=== PATIENT | female | born 1965 | race Caucasian/White ===

== ENCOUNTER 2025-04-02 15:00 | Outpatient (AMB) | payer OTHER, SELFPAY ==
--- NOTE | 2025-04-02 15:03 | A.OFFPC_ITS ---
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 HLD on lipitor. no chest pain or dyspnea Neuro: Following with neurology, Dr Saji Casey at [place]. On Gilenya. Stable. MSK: osteoporosis. referred to [facility] endocrine. she never had an appt with them-looks like insurance issue. She has DEXA readings in her incoming med records. LDCT-Oct 2023 Pneumo 2018 mammo 01/2024 Colonoscopy 2023 ROS CONSTITUTIONAL: Denies weight loss, fever and chills. HEENT: Denies changes in vision and hearing. RESPIRATORY: Denies SOB and cough. CV: Denies palpitations and CP GI: Denies abdominal pain, nausea, vomiting and diarrhea. : Denies dysuria and urinary frequency. MSK: Denies new myalgia and joint pain. SKIN: Denies rash and pruritus. NEUROLOGICAL: Denies headache PSYCHIATRIC: Denies recent changes in mood. PHYSICAL EXAM: GENERAL: Alert and oriented x 3. NAD EYES: EOMI. Anicteric. HENT: Moist mucous membranes. No scleral icterus. No cervical lymphadenopathy. LUNGS: Clear to auscultation bilaterally. CARDIOVASCULAR: Regular rate and rhythm. No murmur. No JVD. ABDOMEN: Soft, non-tender +bs EXTREMITIES: No edema. Non-tender. SKIN: No rashes or lesions. Warm. NEUROLOGIC: No focal neurological deficits. CN II-XII grossly intact PSYCHIATRIC: Cooperative. Appropriate mood and affect PFSH Surgical History (Updated 04/02/25 @ 15:18 by Maribell Garcia CMA) H/O colonoscopy H/O dilation and curettage Hx of cholecystectomy H/O breast biopsy H/O oral surgery Family History (Updated 04/02/25 @ 15:16 by Maribell Garcia CMA) Mother Heart disease Hyperlipidemia HTN (hypertension) Kidney disease Cardiovascular disease Father Hyperlipidemia HTN (hypertension) Brother HTN (hypertension) Maternal Grandmother Cancer Social History (Updated 04/02/25 @ 15:18 by Maribell Garcia CMA) Housing: Apartment Alcohol intake: current Patient Tobacco Use Status: Former Tobacco user (quit 4 years ago) Cigarette Packs Per Day: 1.5 Years Smoked: 40 e-Cigarette/Vaping Use: Never Used Second Hand Smoke Exposure: No service: No Current occupational status: employed Current occupation: Registered nurse Current occupational exposures/hazards: No Cognitive needs: No Hearing needs: No Vision needs: No Questionnaire PHQ-9 Over the last 2 weeks, how often have you been bothered by any of the following problems? 1. Little interest or pleasure in doing things: not at all 2. Feeling down, depressed, or hopeless: not at all 3. Trouble falling or staying asleep, or sleeping too much: not at all 4. Feeling tired or having little energy: not at all 5. Poor appetite or overeating: not at all 6. Feeling bad about yourself - or that you are a failure or have let yourself or your family down: not at all 7. Trouble concentrating on things, such as reading the newspaper or watching television: not at all 8. Moving or speaking so slowly that other people could have noticed. Or the opposite - being so fidgety or restless that you have been moving around a lot more than usual: not at all 9. Thoughts that you would be better off or of hurting yourself in some way: not at all Total score: 0 Depression Screening Interpretation: Negative Depression Screening Done: Yes 42190 - PHQ-9 Billing: Yes Source: Developed by Drs. Roberto Jennings, Renate Dawkins, Gagan Crespo and colleagues, with an educational bhupinder from [employer]. Thrive Questionnaire Date Thrive assessed: 07/12/25 I am a: Patient What is your living situation today?: I have a steady place to live Within the past 12 months, did the food you bought not last and you didn't have the money to get more?: Never true Within the past 12 months, did you worry whether your food would run out before you got money to buy more?: Never true Do you have trouble paying for medicines?: No Do you have trouble getting transportation to medical appointments?: No Do you have trouble paying your heating and electricity bill?: No Do you have trouble taking care of your child, family member or friend?: No Do you have trouble with day-to-day activities such as bathing, preparing meals, shopping, managing finances, etc.?: No Are you currently unemployed and looking for a job?: No Are you interested in more education?: No Please select the resources that you would like help with: None Currently or been in a relationship where the following occur: No concerns reported THRIVE Score: 0 AUDIT C Alcohol Use Questionnaire (AUDIT-C) 1. How often do you have a drink containing alcohol?: Never 3. How often do you have six or more drinks on one occasion?: Never Total Score: 0 SALENA-7 AMB Questionnaire SALENA-7 Date SALENA - 7 assessed: 04/02/25 Feeling nervous, anxious, or on edge: 2 = More than half the days Not being able to stop or control worryin = More than half the days Worrying too much about different things: 2 = More than half the days Trouble relaxin = More than half the days Being so restless that it is hard to sit still: 0 = Not at all Becoming easily annoyed or irritable: 0 = Not at all Feeling afraid as if something awful might happen: 0 = Not at all Total SALENA-7 score (0-4 normal; 5-9 mild; 10-14 moderate; 15-21 severe): 8 Source: Developed by Drs. Roberto Jennings, Renate Dawkins, Gagan Crespo and colleagues, with an educational bhupinder from [employer]. SALENA-7 Assessment Billing SALENA-7 Assessment Tool: SALENA-7 Assessment 95145 Physical exam (Primary Care) Vital Signs: Last Vital Signs Temp 98.2 F 04/02/25 15:10 Pulse 70 04/02/25 15:10 Resp 14 07/15/25 15:10 BP 138/84 04/02/25 15:10 Pulse Ox 98 04/02/25 15:10 Oxygen Delivery Method Room Air 04/02/25 15:10 BMI result Body Mass Index 23.4 Tobacco/Smoking Status: Tobacco use Status Tobacco use date assessed 04/02/25 04/02/25 15:26 Patient Tobacco Use Status Former Tobacco user (quit 4 04/02/25 15:26 years ago) e-Cigarette/Vaping Use Never Used 04/02/25 15:26 PHQ-9: PHQ-9 Score PHQ-9: Total score 0 04/02/25 16:32 Depression Screening Interpretation: Negative Thrive Assessment: Date of Thrive Assessment Date Thrive assessed 03/30/25 04/02/25 15:26 Currently or been in a relationship where the following occur: No concerns reported Coding Level of Care Code New Pt Prev Care 40-64y(14462) Diagnoses Primary hypertension I10 Hypertension type: primary hypertension Multiple sclerosis G35 Osteoporosis without current pathological fracture, unspecified osteoporosis type M81.0 Osteoporosis type: unspecified Presence of current pathological fracture: without current pathological fracture Additional Codes SALENA-7 Assessment Billing - SALENA-7 Assessment Tool: SALENA-7 Assessment 89143 ([id number]) PHQ-9 - 34338 - PHQ-9 Billing: Yes ([id number]) Assessment & Plan Assessment & Plan (1) Hypertension: Code(s): I10 - Essential (primary) hypertension Category: Medical Qualifiers: Hypertension type: primary hypertension Qualified Code(s): I10 - Essential (primary) hypertension (2) Multiple sclerosis: Code(s): G35 - Multiple sclerosis Category: Medical (3) Osteoporosis: Code(s): M81.0 - Age-related osteoporosis without current pathological fracture Category: Medical Qualifiers: Osteoporosis type: unspecified Presence of current pathological fracture: without current pathological fracture Qualified Code(s): M81.0 - Age- related osteoporosis without current pathological fracture Plan 60 year old to establish care Past medical surgical social reviewed MS-stable osteoporosis-referred to endocrine Due for lipids and upcoming mammo Orders: Orders MM tomosynthesis screening BI 04/02/25 Z12.31 - Encounter for screening mammogram for malignant neoplasm of breast Lipid Panel 04/02/25 I10 - Essential (primary) hypertension, Z13.220 - Encoun ter for screening for lipoid disorders Referrals Endocrinology Referral G35 - Multiple sclerosis, M81.0 - Age-related osteoporosis without current pathological fracture
[2025-04-02 15:10] VITALS: BP 138/84; PULSE 70; RESP 14; TEMP 36.8; O2SAT 98; BMI 23.4
--- OUTSIDE RECORDS SUMMARY | 2025-04-02 16:18 | XMS_ITS ---
Author Organization [facility] [address] Address [address] [place] [address] Care Team Providers Care Herb Grower Name Role Phone Ashkan Trevizo MD Primary Care Provider [phone] Rx Multiple Sclerosis Status:Enrolled (Active) Start date:02/10/2023 Enrollment date:02/10/2023 Current support & services provided:Refill Management, Amb Pharm Svcs - Specialty Rx Mgmt Linked medications:dalfampridine (Active), fingolimod HCl (Active) Linked problems:Multiple sclerosis (HC Code) (Active) Case Team Name Relationship Phone Zoraida CedilloD(Responsible Staff) Pharmacist Continued Care and Services Coordination
--- OUTSIDE RECORDS SUMMARY | 2025-04-02 16:18 | XMS_ITS ---
Author Name [facility] Organization Unknown Results Test Name/Text Value Interpretation Date Range Source BKR CD3+CD4+CD8+ LYMPH 1.03 % Normal 10/06/2023 0.13 - 3.82 [facility] BKR NK-CELL MARKERS - LYMPH GATE Normal 10/06/2023 [facility] CD3+CD4+ Cells NFr Bld 28.9 % Below low normal 10/06/2023 29.33 - 59.86 [facility] BKR CD3+CD4+CD8+ ABSOLUTE LYMPH COUNT 5.0 /ul Normal 10/06/2023 2 - 101 [facility] BKR CD19+ LYMPH 2.85 % Below low normal 10/06/2023 5.13 - 21.2 [facility] BKR CD4/CD8 LYMPH RATIO (EXCL.DUAL POS.) 1.18 Normal 10/06/2023 0.73 - 5.86 [facility] BKR CD19+ ABS LYMPH COUNT 13.0 /ul Below low normal 10/06/2023 101 - 525 [facility] BKR CD3-CD16/56+ LYMPH 38.9 % Above high normal 10/06/2023 3.87 - 27.52 [facility] BKR TOTAL LYMPH EVENTS 3969.0 Normal 10/06/2023 [facility] BKR T-CELL MARKERS - LYMPH GATE Normal 10/06/2023 [facility] BKR CD3+CD4-CD8- ABSOLUTE LYMPH COUNT 6.0 /ul Below low normal 10/06/2023 11 - 123 [facility] BKR CD3+ LYMPH 55.63 % Below low normal 10/06/2023 58.5 - 84.57 [facility] CD3+CD4+ Cells # Bld 135.0 /ul Below low normal 10/06/2023 4 66 - 1608 [facility] BKR CD3+CD8+ ABS LYMPH COUNT (EXCL.DUAL POS.) 114.0 /ul Below low normal 10/06/2023 153 - 980 [facility] BKR CD3+CD4-CD8- LYMPH 1.18 % Normal 10/06/2023 0.75 - 6.04 [facility] BKR CD3+ ABS LYMPH COUNT 259.0 /ul Below low normal 10/06/2023 725 - 2432 [facility] BK CD3-CD16/56+ ABS LYMPH COUNT 181.0 /ul Normal 10/06/2023 90 - 620 [facility] BKR TOTAL LYMPHOCYTE GATE Normal 10/06/2023 [facility] BKR CD45+ ABS LYMPH COUNT 466.0 /uL Below low normal 10/06/2023 1172 - 3116 [facility] BKR CD3+/CD8+LYMPH (EXCL.DUAL POS.) 24.51 % Normal 10/06/2023 9.92 - 38.76 [facility] BKR B-CELL MARKERS - LYMPH GATE Normal 10/06/2023 [facility] IgA SerPl-mCnc 99.0 mg/dL Normal 10/06/2023 70 - 470 [facility] IgM SerPl-mCnc 55.0 mg/dL Normal 10/06/2023 40 - 230 [facility] IgG SerPl-mCnc 765.0 mg/dL Normal 10/06/2023 700 - 1600 [facility] Globulin Plas-mCnc 2.4 g/dL Normal 10/05/2023 2.3 - 3.5 [facility] Prot SerPl-mCnc 6.9 g/dL Normal 10/05/2023 6.6 - 8.7 [facility] AST SerPl w P-5'-P-cCnc 22.0 U/L Normal 10/05/2023 10 - 35 [facility] Chloride SerPl-sCnc 107.0 mmol/L Normal 10/05/2023 98 - 1 07 [facility] Albumin SerPl BCG-mCnc 4.5 g/dL Normal 10/05/2023 3.6 - 4.9 [facility] ALT SerPl w/o P-5'-P-cCnc 31.0 U/L Normal 10/05/2023 10 - 35 [facility] Calcium SerPl-mCnc 9.5 mg/dL Normal 10/05/2023 8.8 - 10.2 [facility] Anion Gap3 SerPl-sCnc 8.0 Normal 10/05/2023 7 - 17 [facility] AST/ALT SerPl-cRto 0.7 Normal 10/05/2023 - [facility] Creat SerPl-mCnc 0.78 mg/dL Normal 10/05/2023 0.4 - 1.3 [facility] ALP SerPl-cCnc 40.0 U/L Normal 10/05/2023 9 - 122 [facility] BUN/Creat SerPl 41.0 Above high normal 10/05/2023 8 - 2 3 [facility] Glucose SerPl-mCnc 97.0 mg/dL Normal 10/05/2023 70 - 100 [facility] Potassium SerPl-sCnc 5.1 mmol/L Normal 10/05/2023 3.3 - 5 .3 [facility] BUN SerPl-mCnc 32.0 mg/dL Above high normal 10/05/2023 6 - 2 0 [facility] HCO3 SerPl-sCnc 28.0 mmol/L Normal 10/05/2023 20 - 30 [facility] GFR/BSA.pred SerPlBld OGU-KLW-SyGYnm >60.0 mL/min/1.73m2 Normal 10/05/2023 - [facility] Sodium SerPl-sCnc 143.0 mmol/L Normal 10/05/2023 136 - 14 4 [facility] Albumin/Glob SerPl 1.9 Normal 10/05/2023 1 - 2.2 [facility] Bilirub SerPl-mCnc 0.2 mg/dL Normal 10/05/2023 - [facility] Eosinophil # Bld Auto 0.13 x 1000/uL Normal 10/05/2023 0 - 1 [facility] MCHC RBC Auto-mCnc 32.3 g/dL Normal 10/05/2023 31 - 36 [facility] WBC # Bld Auto 3.1 x1000/uL Below low normal 10/05/2023 4 - 11 [facility] Monocytes # Bld Auto 0.45 x 1000/uL Normal 10/05/2023 0 - 1 [facility] PMV Bld Auto 9.1 fL Normal 10/05/2023 8 - 12 [facility] T Basophils/leuk NFr Bld Auto 0.0 % Normal 10/05/2023 0 - 1.4 [facility] Lymphocytes # Bld Auto 0.41 x 1000/uL Below low normal 10/05/2023 0.6 - 3.7 [facility] nRBC # Bld Auto 0.0 x 1000/uL Normal 10/05/2023 0 - 1 [facility] Monocytes/leuk NFr Bld Auto 14.4 % Above high normal 10/05/2023 4 - 12 [facility] Hct VFr Bld Auto 38.1 % Normal 10/05/2023 35 - 45 [facility] RBC # Bld Auto 3.8 M/uL Below low normal 10/05/2023 4 - 6 [facility] Neutrophils # Bld Auto 2.13 x 1000/uL Normal 10/05/2023 2 - 7.6 [facility] Neutrophils/leuk NFr Bld Auto 68.0 % Normal 10/05/2023 39 - 72 [facility] Basophils # Bld Auto 0.0 x 1000/uL Normal 10/05/2023 0 - 1 [facility] Lymphocytes/leuk NFr Bld Auto 13.1 % Below low normal 10/05/2023 17 - 50 [facility] Hgb Bld-mCnc 12.3 g/dL Normal 10/05/2023 11.7 - 15.5 [facility] Imm Granulocytes/leuk NFr Bld Auto 0.3 % Normal 10/05/2023 0 - 1 [facility] MCV RBC Auto 100.3 fL Above high normal 10/05/2023 80 - 100 [facility] Platelet # Bld Auto 319.0 x1000/uL Normal 10/05/2023 150 - 420 [facility] Imm Granulocytes # Bld Auto 0.01 x 1000/uL Normal 10/05/2023 0 - 0.3 [facility] Eosinophil/leuk NFr Bld Auto 4.2 % Normal 10/05/2023 0 - 5 [facility] nRBC/100 WBC Bld Auto-Rto 0.0 % Normal 10/05/2023 0 - 1 [facility] RDW RBC Auto-Rto 12.9 % Normal 10/05/2023 11 - 15 [facility] MCH RBC Qn Auto 32.4 pg Normal 10/05/2023 27 - 33 [facility]
== END 2025-04-02 15:52 | disposition home or self-care (01) ==
LOC: HO.HMCFM 15:00
PROVIDERS: PCP Internal Medicine; Visit Provider Internal Medicine
DX: Z00.00 Encounter for general adult medical examination without abnormal findings (principal); I10 Essential (primary) hypertension; G35 Multiple sclerosis; M81.0 Age-related osteoporosis without current pathological fracture

== ENCOUNTER → 2025-04-02 15:00 | Outpatient (BNVA) | payer OTHER, SELFPAY | PROVIDERS: PCP Internal Medicine; Visit Provider Internal Medicine | DX: Z76.89 Persons encountering health services in other specified circumstances (principal); I10 Essential (primary) hypertension; G35 Multiple sclerosis; M81.0 Age-related osteoporosis without current pathological fracture; Z79.899 Other long term (current) drug therapy; Z13.31 Encounter for screening for depression; Z13.30 Encounter for screening examination for mental health and behavioral disorders, unspecified | CPT/HCPCS: 96127 ==

== ENCOUNTER 2025-05-23 15:07 | Outpatient (AMB) | payer OTHER, SELFPAY ==
--- NOTE | 2025-05-23 15:22 | MHC.OFFVIS ---
Vital Signs 05/23/25 15:27 Height 5 ft 7.4 in Weight 151 lb 0.266 oz BMI 23.4 BP 138/74 Blood Pressure Location Rt brachial Position Sitting Pulse 67 Pulse Source Pulse Oximeter Pulse Oximetry (%) 96 Oxygen Delivery Method Room Air Intake Visit Reasons: Osteoporosis Intake Note: New patient internally referred by PCP for Osteoporosis. Speech/Language Therapist Required: No Accompanied by: Self / Same As Patient Allergies No Known Allergies Allergy (Verified 05/23/25 15:28) Medication List - Last Reconciled 05/23/25 by Roberto Church MD aspirin 81 mg PO DAILY atenolol 25 mg PO DAILY atorvastatin (Lipitor) 20 mg PO DAILY baclofen 20 mg PO TID bupropion HCl XL (Wellbutrin XL) 150 mg PO QAM calcium carbonate 500 mg PO DAILY cholecalciferol (vitamin D3) 50 mcg PO DAILY dalfampridine ER (Ampyra) 10 mg PO Q12H diphenhydramine HCl (Allergy (diphenhydramine)) 25 mg PO BEDTIME PRN doxycycline hyclate 20 mg PO BID fingolimod (Gilenya) 0.5 mg PO DAILY ibuprofen 800 mg PO TID magnesium citrate 1,000 mg PO DAILY melatonin 20 mg PO DAILY multivitamin 1 tab PO DAILY sennosides-docusate sodium 8.6-50 mg (Senna-S) 1 tab-cap PO BEDTIME HPI Comments Details: 60 YO Female is seen in consultation at the request of PCP for Osteoporosis. Have not seen endo before First diagnosed in 4 yrs ago . Received treatment in the past with alendronate , from 2017 to less than yr . Tolerated treatment well without complication. No history of pathologic fracture or ONJ. Broke tibia 30 yrs ago after falling on ice Has several servings of dietary calcium per day in the form of cereal , milk . Takes Calcium supplement 500 mg daily in divided doses. Takes 2000 IU of Vitamin D daily. Denies ever using PPI, anticoagulant, antiepileptic but have courses of glucocorticoid medication. Not Does weight bearing exercise Fracture history: No Height loss: Yes SATELLITE TELEVISION INSTALLER history: Menarche at age 14 - menopause at age 47 - nl menses Denies history of Kidney stones: Denies family history of Osteoporosis or hip fracture. UTD on dental cleanings and sees dentist every 6 months. Has planned upcoming dental work and extractions in next mo . Ex tobacco use quit 4 yrs ago , no ETOH abuse DXA dated []:Femoral neck =-3.1 Labs: [facility] Surgical History (Updated 04/02/25 @ 15:18 by Maribell Garcia CMA) H/O colonoscopy H/O dilation and curettage Hx of cholecystectomy H/O breast biopsy H/O oral surgery Family History (Updated 04/02/25 @ 15:16 by Maribell Garcia CMA) Mother Heart disease Hyperlipidemia HTN (hypertension) Kidney disease Cardiovascular disease Father Hyperlipidemia HTN (hypertension) Brother HTN (hypertension) Maternal Grandmother Cancer Social History (Updated 04/02/25 @ 15:18 by Maribell Garcia CMA) Housing: Apartment Alcohol intake: current Patient Tobacco Use Status: Former Tobacco user (quit 4 years ago) Cigarette Packs Per Day: 1.5 Years Smoked: 40 e-Cigarette/Vaping Use: Never Used Second Hand Smoke Exposure: No service: No Current occupational status: employed Current occupation: Registered nurse Current occupational exposures/hazards: No Cognitive needs: No Hearing needs: No Vision needs: No Physical Exam There are no Cushingoid features. Absence of blue sclera. Absence of kyphosis. Thyroid gland is of nl size and weighs 15 gms. There are no thyroid nodules palpated. Lungs CTA. Heart S1 S2 Reg R/R Abdominal exam benign. Muscle strength 5/5 . Examination of spine reveals absence of tenderness on palpation Assessment & Plan Assessment & Plan (1) Osteoporosis: Code(s): M81.0 - Age-related osteoporosis without current pathological fracture Category: Medical Qualifiers: Osteoporosis type: unspecified Presence of current pathological fracture: without current pathological fracture Qualified Code(s): M81.0 - Age-related osteoporosis without current pathological fracture Plan: This is a 60-year-old female with a history of osteoporosis ? Secondary workup in past but not available. Plan is to investigate for secondary causes if not already done by checking phosphorus level, calcium level, albumin level, basic metabolic panel, 24 hour urine for calcium and creatinine, urine immunofixation. Will ensure 1200 mg of calcium and continued supplementation of vitamin D3 2000 IU. If secondary workup was negative, would strongly consider use of anabolic agent initially such as Evenity, Tymlos or Forteo to be proceeded by an anti resorptive agent considering patient's age and very low bone density put him at a high risk for fracture Orders: Orders Albumin Level Today M81.0 - Age-related osteoporosis without current pathological fracture Calcium, 24 Hr Ur Today M81.0 - Age-related osteoporosis without current pathological fracture Phosphorus Today M81.0 - Age-related osteoporosis without current pathological fracture Basic Metabolic Panel Today M81.0 - Age-related osteoporosis without current pathological fracture Thyroid Stimulating Hormone Today M81.0 - Age-related osteoporosis without current pathological fracture Free T4 (Free Thyroxine) Today M81.0 - Age-related osteoporosis without current pathological fracture Vitamin D 25-OH Total Today M81.0 - Age-related osteoporosis without current pathological fracture Calcium Today M81.0 - Age-related osteoporosis without current pathological fracture Creatinine, 24 Hr Group Today M81.0 - Age-related osteoporosis without current pathological fracture Immunofixation, Random Urine Today M81.0 - Age-related osteoporosis without current pathological fracture Coding Level of Care Code New Pt Level 4 (77242) Diagnoses Osteoporosis without current pathological fracture, unspecified osteoporosis type M81.0 Osteoporosis type: unspecified Presence of current pathological fracture: without current pathological fracture
[2025-05-23 15:27] VITALS: BP 138/74; PULSE 67; O2SAT 96; BMI 23.4
--- OUTSIDE RECORDS SUMMARY | 2025-05-23 16:06 | XMS_ITS | Encounter Summary ---
Author Organization [facility] Address [address] [place] [address] Care Team Providers Care Client Onboarding Analyst Name Role Phone Ashkan Trevizo MD Primary Care Provider [phone] Reason for Visit * Reason Comments Medication Refill Encounter Details Date Type Department Care Team (Late Contact Info) Description 11/24/2024 [facility]ill [facility] [address] [place] [address] [phone] Raudel Wood APRN [address] [phone] Medication Refill Social History Tobacco Use Types Packs/Day Years Used Date Smoking Tobacco: Former Cigarettes Q uit: 01/26/2021 Smokeless Tobacco: Never PHQ-2 Answer Date Recorded PHQ-2 Total Score 0 10/05/2023 Interpersonal Safety Answer Date Record ed Is there anyone in your life that is hurting or threatening you in anyway? Not on file 06/19/2024 Physical Indicators of Abuse No evidence of phys ical abuse 06/19/2024 Comments Unknown Sex and Gender Information Value Date Recorded Sex Assigned at Female 12/20/2022 8:56 PM EDT Legal Sex Female 10:39 AM EDT Gender Identity Female 12/20/2022 8:56 PM EDT Sexual Orientation Not on file documented as of this encounter Plan of Treatment Upcoming Encounters Date Type Department Care Team (Late Contact Info) Description 07/17/2025 11:30 AM EDT Office Visit [facility] [address] [facility] [address] [place] [address] Saji Casey MD [address] [facility] [place] [phone] 07/30/2025 3:30 PM EST [facility]medicine [facility] at [address] [place] [address] Zoraida Adams, Harjit documented as of this encounter Goals Goal Patient Goal Type Associated Problems Recent Progress Patient-Stated? Author RxSp Therapeutic Goal General On track( 3:46 PM EDT) No Zoraida Adams PharmD Note: Multiple Sclerosis: Reduce or maintain frequency of exacerbations MTPs must be opened for patients not making appropriate progress towards their established therapeutic goals. Patient's progress towards goal: Patient is stable on fingolimod (Gilenya) RxSp Therapeutic Goal General On track( 3:46 PM EDT) No Zoraida Adams PharmD Note: Multiple Sclerosis: Improve walking (Ampyra) MTPs must be opened for patients not making appropriate progress towards their established therapeutic goals. Patient's progress towards goal: Patient subjectively feels improvement in walking speed since starting dalfampridine (Ampyra). documented as of this encounter Visit Diagnoses Not on filedocumented in this encounter Additional Health Concerns Assessment Noted Time PHQ-9 Depression Total Score: 0 10/05/19 24 1:25 PM EST documented as of this encounter Care Teams Client Onboarding Analyst Relationship Specialty Start Date End Date Ashkan Trevizo MD [address] [place] [phone] PCP - General Internal Medicine 12/20/22 documented as of this encounter
--- OUTSIDE RECORDS SUMMARY | 2025-05-23 16:06 | XMS_ITS | Encounter Summary ---
Author Organization [facility] and [facility] Address [address] [place] [address] Care Team Providers Care Marketing Segment Manager Name Role Phone Ashkan Trevizo MD Primary Care Provider [phone] Encounter Details Date Type Department Care Team (Late st Contact Info) Description 12/13/2023 Scanned Document [facility] at [address] [facility] [address] [place], [place] [phone] Provider, historical . Social History Tobacco Use Types Packs/Day Years Used Date Smoking Tobacco: Former Cigarettes Q uit: 01/26/2021 Smokeless Tobacco: Never PHQ-2 Answer Date Recorded PHQ-2 Total Score 0 10/05/2023 Interpersonal Safety Answer Date Record ed Is there anyone in your life that is hurting or threatening you in anyway? Not on file 10/05/2023 Physical Indicators of Abuse No evidence of phys ical abuse 10/05/2023 Comments Unknown Sex and Gender Information Value Date Recorded Sex Assigned at Female 12/20/2022 8:56 PM EDT Legal Sex Female 10:39 AM EDT Gender Identity Female 12/20/2022 8:56 PM EDT Sexual Orientation Not on file documented as of this encounter Plan of Treatment Upcoming Encounters Date Type Department Care Team (Late st Contact Info) Description 07/17/2025 11:30 AM EDT [facility] [address] [place] [address] Saji Casey MD [address] [place] [address] 07/30/2025 3:30 PM EST Telemedicine [facility] at [address] [place] [address] ROBIN HATHAWAY [address] Zoraida Adams PharmD documented as of this encounter Goals Goal Patient Goal Type Associated Problems Recent Progress Patient-Stated? Author RxSp Therapeutic Goal General On track( 025 3:46 PM EDT) No Zoraida Adams PharmD Note: Multiple Sclerosis: Reduce or maintain frequency of exacerbations MTPs must be opened for patients not making appropriate progress towards their established therapeutic goals. Patient's progress towards goal: Patient is stable on fingolimod (Gilenya) RxSp Therapeutic Goal General On track( 025 3:46 PM EDT) No Zoraida Adams PharmD Note: Multiple Sclerosis: Improve walking (Ampyra) MTPs must be opened for patients not making appropriate progress towards their established therapeutic goals. Patient's progress towards goal: Patient subjectively feels improvement in walking speed since starting dalfampridine (Ampyra). documented as of this encounter Procedures Procedure Name Priority Date/Time Associated Diagnosis Comments LAB SCAN Routine 12/13/2023 2:09 PM EDT documented in this encounter Results * Lab Scan (12/13/2023 2:09 PM EDT) Historical Provider LAB BLOOD ORDERABLES Final R esult documented in this encounter Visit Diagnoses Not on filedocumented in this encounter Additional Health Concerns Assessment Noted Time PHQ-9 Depression Total Score: 0 10/05/19 24 1:25 PM EST documented as of this encounter Care Teams Marketing Segment Manager Relationship Specialty Start Date End Date Ashkan Trevizo MD [address] [place] [phone] PCP - General Internal Medicine 12/20/22 documented as of this encounter
--- OUTSIDE RECORDS SUMMARY | 2025-05-23 16:06 | XMS_ITS ---
Author Organization [facility] [address] Address [address] [place] [address] Care Team Providers Care Transportation Project Manager Name Role Phone Ashkan Trevizo MD Primary Care Provider [phone] Rx Multiple Sclerosis Status:Enrolled (Active) Start date:02/10/2023 Enrollment date:02/10/2023 Current support & services provided:Refill Management, Amb Pharm Svcs - Specialty Rx Mgmt Linked medications:dalfampridine (Active), fingolimod HCl (Active) Linked problems:Multiple sclerosis (HC Code) (Active) Case Team Name Relationship Phone Zoraida CedilloD(Responsible Staff) Pharmacist Continued Care and Services Coordination
--- OUTSIDE RECORDS SUMMARY | 2025-05-23 16:06 | XMS_ITS | Encounter Summary ---
Author Organization [facility] and [facility] Address [address] [place] [address] Care Team Providers Care Metal Weigher Name Role Phone Ashkan Trevizo MD Primary Care Provider [phone] Encounter Details Date Type Department Care Team (Late Contact Info) Description 12/19/2024 Scanned Document [facility] [address] [place] [address] Provider, historical . Social History Tobacco Use Types Packs/Day Years Used Date Smoking Tobacco: Former Cigarettes Q uit: 01/26/2021 Smokeless Tobacco: Never PHQ-2 Answer Date Recorded PHQ-2 Total Score 0 12/19/2024 Interpersonal Safety Answer Date Record ed Is there anyone in your life that is hurting or threatening you in anyway? Not on file 12/19/2024 Physical Indicators of Abuse No evidence of phys ical abuse 12/19/2024 Comments No Sex and Gender Information Value Date Recorded Sex Assigned at Female 12/20/2022 8:56 PM EDT Legal Sex Female 10:39 AM EDT Gender Identity Female 12/20/2022 8:56 PM EDT Sexual Orientation Not on file documented as of this encounter Plan of Treatment Upcoming Encounters Date Type Department Care Team (Late Contact Info) Description 07/17/2025 11:30 AM EDT Office Visit [facility] [address] [place] [address] Saji Casey MD [facility] [place] [address] 07/30/2025 3:30 PM EST Telemedicine [facility] at [address] [place] [address] ROB[place] [address] Zoraida Adams PharmD documented as of this [...] Procedure Name Priority Date/Time Associated Diagnosis Comments MRI RESULT SCAN Routine 12/18/2024 4:15 PM EDT documented in this encounter Results * MRI Result Scan (12/18/2024 4:15 PM EDT) Historical Provider IMG SCAN REPORTS Final Resul t documented in this encounter Visit Diagnoses Not on filedocumented in this encounter Additional Health Concerns Assessment Noted Time PHQ-9 Depression Total Score: 0 10/05/19 24 1:25 PM EST documented as of this encounter Care Teams Metal Weigher Relationship Specialty Start Date End Date Ashkan Trevizo MD [address] [place] [phone] PCP - General Internal Medicine 12/20/22 documented as of this encounter
--- OUTSIDE RECORDS SUMMARY | 2025-05-23 16:06 | XMS_ITS | Encounter Summary ---
Author Organization [facility] Address [address] [place] [address] Care Team Providers Care Automotive Leasing Sales Representative Name Role Phone Ashkan Trevizo MD Primary Care Provider [phone] Encounter Details Date Type Department Care Team (Late st Contact Info) Description 01/26/2023 Scanned Document [facility] [address] [place] [phone] Karen Rolle MD [address] [place] [phone] Social History Tobacco Use Types Packs/Day Years Used Date Smoking Tobacco: Former Cigarettes Q uit: 01/26/2021 Smokeless Tobacco: Never PHQ-2 Answer Date Recorded PHQ-2 Total Score 0 01/26/2023 Interpersonal Safety Answer Date Record ed Is there anyone in your life that is hurting or threatening you in anyway? Not on file 01/26/2023 Physical Indicators of Abuse No evidence of phys ical abuse 01/26/2023 Comments Unknown Sex and Gender Information Value [...] EDT Office Visit [facility] [address] [place] [address] Saji Casey MD [address] [place] [phone] 07/30/2025 3:30 PM [facility] Telemedicine [facility] at [address] [address] Zoraida Adams, MamadouD documented as of this encounter Procedures Procedure Name Priority Date/Time Associated Diagnosis Comments LAB SCAN Routine 01/13/2023 documented in this encounter Results * Lab Scan (01/13/2023) us Historical Provider LAB BLOOD ORDERABLES Final R esult documented in this encounter Visit Diagnoses Not on filedocumented in this encounter Additional Health Concerns Assessment Noted Time PHQ-9 Depression Total Score: 0 01/27/20 9:14 AM EDT documented as of this encounter Care Teams Automotive Leasing Sales Representative Relationship Specialty Start Date End Date Ashkan Trevizo MD [address] [place] [phone] PCP - General Internal Medicine 12/20/22 documented as of this encounter
--- OUTSIDE RECORDS SUMMARY | 2025-05-23 16:06 | XMS_ITS | Encounter Summary ---
Author Organization [facility] and [facility] Address [address] [place] [address] Care Team Providers Care Health Navigator Name Role Phone Ashkan Trevizo MD Primary Care Provider [phone] Encounter Details Date Type Department Care Team (Late Contact Info) Description 12/20/2022 Scanned Document [place] [facility] - [address] [address] Provider, Historical . [phone] (Fax) Social History Tobacco Use Types Packs/Day Years Used Date Smoking Tobacco: Never Assessed Comments Unknown Sex and Gender Information Value [...] EDT Office Visit [facility] [address] [place] [address] [address] [place] [address] Saji Casey MD [address] [place] [phone] 07/30/2025 3:30 PM [facility] Comprehensive [facility] Clinic at [address] [place] [phone] Zoraida Adams, MamadouD documented as of this encounter Procedures Procedure Name Priority Date/Time Associated Diagnosis Comments MRI RESULT SCAN Routine 12/09/2022 documented in this encounter Results * MRI Result Scan (12/09/2022) us Historical Provider IMG SCAN REPORTS Final Resul t documented in this encounter Visit Diagnoses Not on filedocumented in this encounter Care Teams Health Navigator Relationship Specialty Start Date End Date Ashkan Trevizo MD [address] [place] [phone] PCP - General Internal Medicine 12/20/22 documented as of this encounter
--- OUTSIDE RECORDS SUMMARY | 2025-05-23 16:06 | XMS_ITS | Encounter Summary ---
Author Organization [facility] and [facility] Address [address] [place] [address] Care Team Providers Care Face Painter Name Role Phone Ashkan Trevizo MD Primary Care Provider [phone] Reason for Visit * Reason Onset Date Comments Medication Refill 11/27/2024 Encounter Details Date Type Department Care Team (Late Contact Info) Description 11/27/2024 Refill [facility] [address] [address] Raudel Wood APRN [address] [phone] Medication Refill Social History Tobacco Use Types [...] Office Visit [facility] 6 [facility] 2nd [place] [address] Sjai Casey MD [address] [place] [phone] 07/30/2025 3:30 PM EST Telemedicine [facility] at [address] [address] Zoraida Adams, Harjit documented as of this [...] documented as of this encounter Care Teams Face Painter Relationship Specialty Start Date End Date Ashkan Trevizo MD [address] [place] [phone] PCP - General Internal Medicine 12/20/22 documented as of this encounter
--- OUTSIDE RECORDS SUMMARY | 2025-05-23 16:06 | XMS_ITS | Encounter Summary ---
Author Organization [facility] Address [address] [place] [address] Care Team Providers Care Telehealth Nurse Educator Name Role Phone Ashkan Trevizo MD Primary Care Provider [phone] Encounter Details Date Type Department Care Team (Late st Contact Info) Description 01/26/2023 Transcribed Orders [place] [facility] 6 [facility] 6 [place] [address] Karen Rolle MD [address] [place] [phone] Multiple sclerosis (HC Code) (Primary Dx) Social History Tobacco Use Types Packs/Day Years [...] [facility] 2nd [place] [address] Saji Casey MD [address] [place] [phone] 07/30/2025 3:30 PM [facility] Telemedicine [facility] at [address] [place] [phone] Zoraida Adams, PharmD documented as of this encounter Results * HEPATITIS B SURFACE ANTIGEN (BH GH L LMW Y) (01/26/2023 9:30 AM EDT) Pathologist [facility] Hepatitis B Surface Antigen Negative Negative 01/26/2023 4:35 PM EDT [facility] DEPARTMENT OF LABORATORY MEDICINE Blood Venipuncture / Unknown 01/26/2023 9:30 AM EDT 01/26/2023 9:30 AM EDT Karen Rolle MD LAB BLOOD ORDERABLES F inal Result [facility] DEPARTMENT OF LABORATORY MEDICINE [address] [place] [address], [facility] [phone] * Hepatitis B surface antibody ( GH L Y) (01/26/2023 9:30 AM EDT) Hepatitis B Surface Antibody 49.81 > or = 12 mIU/mL 01/26/2023 5:00 PM EDT [facility] DEPARTMENT OF LABORATORY MEDICINE Comment: Patient is considered to be immune to infection with HBV. It has not been determined what the clinical significance is for values greater than or equal to 12 mIU/ml, other than the individual is considered to be immune to HBV infection. This assay was restandardized from the 1st to the 2nd WHO International Reference Standard on 02/28/18. A slight upward shift in values was noted. Blood Venipuncture / Unknown 01/26/2023 9:30 AM EDT 01/26/2023 9:30 AM EDT us Karen Rolle MD LAB BLOOD ORDERABLES F inal Result [facility] DEPARTMENT OF LABORATORY MEDICINE [address] [place] [address] documented in this encounter Visit Diagnoses Diagnosis Multiple sclerosis (HC Code)- Primary Multiple sclerosis documented in this encounter Additional Health Concerns Assessment Noted Time PHQ-9 Depression Total Score: 0 01/27/20 9:14 AM EDT documented as of this encounter Care Teams Telehealth Nurse Educator Relationship Specialty Start Date End Date Ashkan Trevizo MD [address] [place] [phone] PCP - General Internal Medicine 12/20/22 documented as of this encounter
--- OUTSIDE RECORDS SUMMARY | 2025-05-23 16:06 | XMS_ITS | Encounter Summary ---
Author Organization [facility] and [facility] Address [address] [place] [address] Care Team Providers Care Acds Block 1 Operator Name Role Phone Ashkan Trevizo MD Primary Care Provider [phone] Encounter Details Date Type Department Care Team (Late st Contact Info) Description 02/10/2023 Documentation [facility] [address] [address] Ishamel Ernst MD [address] [place] [phone] Social History Tobacco Use Types Packs/Day Years [...] on file documented as of this encounter Progress Notes * Ishmael Ernst MD - 02/10/2023 1:22 PM EDTSummary: Ocrevus Conset Called and spoke with pt to conversation regarding Ocrevus pt had with Dr. Rolle. Reviewed risks and benefits and pt expressed understanding. She did not have any questions. Consent form signed andwill be scanned into chart. We discussed the pros/cons of the B-cell depleting monoclonal antibodies, rituximab and ocrelizumab. These q6 month IV infusions have been tested for use in relapsing and progressive MS. Rituximab iscurrently used off-label for patients with refractory MS activity. Ocrelizumab is FDA approved. We discussed common side effects including but not limited to infusion reactions, minor infections, andreduction in certain populations of white blood cells. We discussed serious side effects which include but are not limited to serious infusion reactions, severe skin/mouth reactions (e.g. Love-Andrea syndrome or toxic epidermal necrolysis) and serious infections including progressive multifocalleukoencephalopathy (PML). Clinical trials of ocrelizumab suggested a possible increased risk of breast cancer, and this link continues to be investigated. Baseline screening for this medication includes CBC, liver function tests, hepatitis screening, and immune competence panel. Additional testingmay be done at the discretion of the prescribing physician. Follow up blood work is done at least twice yearly and may include immune competence panel, hepatitis screening, quantitative immunoglobulins, CBC and CMP. Patients on rituximab/ocrelizumab should see their prescribing neurologist or a surrogate every 6 months, and must alert the physician's office immediately if they develop an unusual infection. Women of childbearing age should not receive rituximab/ocrelizumab while and must work with their neurologist if planning a . We will not continue to prescribe rituximab/ocrelizumab for patients who are not compliant with required monitoring. Ishmael Ernst MD Neuroimmunology Fellow, PGY-5 documented in this encounter Plan of Treatment Upcoming Encounters Date Type Department Care Team (Late st Contact Info) Description 07/17/2025 11:30 AM EDT Office Visit [facility] [address] [place] [phone] Saji Casey MD [address] [place] [address], [place] [phone] 07/30/2025 3:30 PM [facility] at [address] [place] [phone] Zoraida Adams PharmD documented as of this [...] goal: Patient is stable on fingolimod (Gilenya) documented as of this encounter Visit Diagnoses Not on filedocumented in this encounter Additional Health Concerns Assessment Noted Time PHQ-9 Depression Total Score: 0 01/27/20 9:14 AM EDT documented as of this encounter Care Teams Acds Block 1 Operator Relationship Specialty Start Date End Date Ashkan Trevizo MD [address] [place] [phone] PCP - General Internal Medicine 12/20/22 documented as of this encounter
--- OUTSIDE RECORDS SUMMARY | 2025-05-23 16:06 | XMS_ITS | Encounter Summary ---
Author Organization [facility] and [facility] Address [address] [place] [address] Care Team Providers Care Edm Operator Name Role Phone Ashkan Trevizo MD Primary Care Provider [phone] Reason for Visit * Reason Comments Triage ? renew script or wi ll it change Encounter Details Date Type Department Care Team (Late st Contact Info) Description 02/03/2023 Telephone [facility] [address] [place] [phone] Karen Rolle MD [address] [place], [place] [phone] Triage (? renew script or will it change ) Social History Tobacco Use Types Packs/Day Years [...] on file documented as of this encounter Miscellaneous Notes * Telephone Encounter - Karen Rolle MD - 02/08/2023 9:58 AM EDT Seeing her tomorrow by video so can make sure she signs the form :) * Telephone Encounter - Karen Rolle MD - 02/03/2023 3:15 PM EDT We were going to discuss at her visit next week. Does she have enough supply to make it until then? * Telephone Encounter - Christa Mai PCT - 02/03/2023 2:16 PM EDT Pt. Called to request a refill of fingolimod (GILENYA) 0.5 mg capsule, she is not sure if this medication will be changed as her co pay assistance has exhausted. Please call her to discuss documented in this encounter Plan of Treatment Upcoming Encounters Date Type Department Care Team (Late st Contact Info) Description 07/17/2025 11:30 AM EDT Office Visit [facility] [address] [place] [phone] Saji Casey MD [address] [place] [phone] 07/30/2025 3:30 PM [facility] Telemedicine Comprehensive [facility] Clinic at [address] [phone] Zoraida Adams, PharmD documented as of this encounter Visit Diagnoses Not on filedocumented in this encounter Additional Health Concerns Assessment Noted Time PHQ-9 Depression Total Score: 0 01/27/20 9:14 AM EDT documented as of this encounter Care Teams Edm Operator Relationship Specialty Start Date End Date Ashkan Trevizo MD [address] [place] [phone] PCP - General Internal Medicine 12/20/22 documented as of this encounter
--- OUTSIDE RECORDS SUMMARY | 2025-05-23 16:06 | XMS_ITS | Clinical Summary ---
Author Organization [facility] [address] Address [address] [place] [address] Care Team Providers Care Pasta Maker Name Role Phone Ashkan Trevizo MD Primary Care Provider [phone] Allergies No known active allergies Medications sennosides-docu sate sodium 8.6-50 mg Cap Take 2 capsules by mouth nightly. Active multivit-min/ir on/folic/lutein (CENTRUM SILVER WOMEN ORAL) Take 1 tablet by mouth daily. Active cholecalciferol , vitD3,/vit K2 (VITAMIN D3-VITAMIN K2 ORAL) Take 1 tablet by mouth daily. Active calcium carbonate (CALCIUM 500 ORAL) Take 1 tablet by mouth daily. Active aspirin (ASPIR-81 ORAL) Acti ve ascorbic acid, vitamin C, (VITAMIN C) 500 mg tablet Active ibuprofen (ADVIL,MOTRIN) 800 mg tabletIndicatio ns:Muscle pain Take 1 tablet (800 mg total) by mouth every 6 (six) hours as needed for pain. 90 tablet 5 Active dalfampridine (AMPYRA) 10 mg 12 hr extended release tabletIndicatio ns:Multiple sclerosis (HC Code) Take 1 tablet (10 mg total) by mouth every 12 (twelve) hours. 180 tablet 1 5 Active fingolimod (GILENYA) 0.5 mg capsuleIndicati ons:Multiple sclerosis (HC Code) Take 1 capsule (0.5 mg total) by mouth daily. 30 capsule 5 05/21/2025 4:30 PM EDT 5 Active baclofen (LIORESAL) 20 mg tablet TAKE 2 TABS AT BEDTIME AND 1 ADDITIONAL TAB NIGHTLY IF NEEDED. 270 tablet 1 5 Active atorvastatin (LIPITOR) 20 mg tablet TAKE 1 TABLET BY MOUTH EVERY DAY AT NIGHT 90 tablet 1 5 Active atenoloL (TENORMIN) 25 mg tablet TAKE 1 TABLET (25 MG TOTAL) BY MOUTH DAILY. 90 tablet 1 5 Active buPROPion SR (WELLBUTRIN SR) 150 mg 12 hr tablet TAKE 1 TABLET BY MOUTH TWICE A DAY 180 tablet 1 5 Active Active Problems Problem Noted Date Diagnosed Date Multiple sclerosis (HC Code) 02/03/2023 Encounters Date Type Department Care Team Description 05/17/2025 Specialty Pharmacy [facility] [address] [place] [address] Carmen Zamarripa, LAYO 04/20/2025 Specialty Pharmacy [facility] [address] [place] [address] Sandra Johnson, LAYO 04/17/2025 [facility]ation [facility] [address] [place] [phone] Zoraida Adams, PharmD 03/27/2025 Telephone [facility] at [address] [place] [address] Gemma Arreaga, LAYO Labs Only 03/27/2025 [facility]ill [facility] [address] [place] [address] Saji Casey MD Medication Refill 03/26/2025 Specialty Pharmacy [facility] [address] [place] [address], [place] [address] Susanne Garland CPHT 03/23/2025 Refill [facility] [address] [place] [address] Saji Casey MD Med Change Request 02/27/2025 Specialty Pharmacy [facility] [address] [place] [address], [place] [address] Sandra Johnson CPHT from Last 3 Months Immunizations Immunization Administration Dates Next Due COVID-19, PFIZER 12Y up,mRNA,ALLYSON 07/09/2021,10/2020,09/30/2020 COVID-19, PFIZER Bivalent, 12 Yrs+, 0.3mL 2022,07/09/2022 Influenza, trivalent, inject able, contains preservative 06/19/2019 Influenza, unspecified formulation 06/19/2023 Pneumococcal polysaccharide PPSV23 07/26/2019, Social History Tobacco Use Types Packs/Day Years Used Date Smoking Tobacco: Former Cigarettes Q uit: 01/26/2021 Smokeless Tobacco: Never Tobacco Cessation:Counseling Given: Not Answered PHQ-2 Answer Date Recorded PHQ-2 Total Score [...] PM EDT Sexual Orientation Not on file Last Filed Vital Signs Vital Sign Reading Time Taken Comments Blood Pressure 122/63 12/19/2024 12:32 PM EDT Pulse 65 12/19/2024 12:32 PM EDT Temperature 36.8 C (98.3 F) 12/19/2024 12:32 PM EDT Respiratory Rate 20 12/19/2024 12:32 PM EDT Oxygen Saturation 100% 12/19/2024 12:32 PM EDT Inhaled Oxygen Concentration - - Weight 69.4 kg (153 lb) 12/19/2024 12:32 PM EDT Height 172.7 cm (5' 8 ) 06/19/2024 2:13 PM EDT Body Mass Index 23.26 06/19/2024 2:13 PM EDT Plan of Treatment Upcoming Encounters Date Type Department Care Team (Late st Contact Info) Description 07/17/2025 11:30 AM EDT Office Visit [facility] [address] [place] [address] Saji Casey MD [facility] [place] [address] 07/30/2025 3:30 PM EST Telemedicine [facility] at [address] [place] [phone] Zoraida Adams, PharmD Health Maintenance Due Date Last Done Comments Tetanus adult (Td q 10,TDAP once) 1984 Cervical cancer screening 1985 Breast cancer screening 2004 Lipid disorder screening 2004 Colon cancer screening, Colonoscopy 2009 Shingles vaccine (Shingrix) (1 of 2 - Shingrix (RZV) 2 Dose Standard Series) 2014 Pneumococcal Vaccine (50+ years) (3 of 3 - PCV) 07/26/2020 07/26/2019, 04/17/2014 RSV Immunization (1 - Risk 60-74 years 1-dose series) 2024 Covid-19 vaccine series ( season) 2025 08/12/2023, 02/04/2023, 07/09/2022, Additional history exists Influenza vaccine 05/20/2025 07/11/2023, , 06/19/2019 Diabetes screening 04/02/2028 04/02/2025, 0 10/19/2024, 04/02/2024, Additional history exists Pneumococcal Vaccine (2 - 49 years) Discontinued 07/26/2019, 04/17/2014 HIV screening Completed 01/26/2023 Hepatitis C screening Completed 01/26/2023 Meningococcal B Vaccine Aged Out No l onger eligible based on patient's age to complete this topic Meningococcal Vaccine Aged Out No delores vinod eligible based on patient's age to complete this topic Goals Goal Patient Goal Type Associated Problems Recent Progress Patient-Stated? Author RxSp Therapeutic Goal General On track( 025 3:46 PM EDT) No Zoraida Adams, PharmD Note: Multiple Sclerosis: Reduce or maintain frequency of exacerbations MTPs must be opened for patients not making appropriate progress towards their established therapeutic goals. Patient's progress towards goal: Patient is stable on fingolimod (Gilenya) RxSp Therapeutic Goal General On track( 025 3:46 PM EDT) No Zoraida Adams, PharmD Note: Multiple Sclerosis: Improve walking (Ampyra) MTPs must be opened for patients not making appropriate progress towards their established therapeutic goals. Patient's progress towards goal: Patient subjectively feels improvement in walking speed since starting dalfampridine (Ampyra). Procedures Procedure Name Priority Date/Time Associated Diagnosis Comments COMPREHENSIVE METABOLIC PANEL Routine 04/02/2025 9:36 AM EDT Multiple sclerosis (HC Code) CBC AND DIFFERENTIAL Routine 04/02/2025 9:36 AM EDT Multiple sclerosis (HC Code) HIV-1/HIV-2 ANTIBODY/ANTIGEN SCREEN W/REFLEX ( GH LMW YH) Routine 01/26/2023 9:30 AM EDT Multiple sclerosis (HC Code) HEPATITIS C AB WITH REFLEX TO HCV PCR Routine 01/26/2023 9:30 AM EDT Multiple sclerosis (HC Code) from Last 3 Months or Most Recently Relevant to Health Maintenance Results * (ABNORMAL) CBC and differential (04/02/2025 9:36 AM EDT) WBC 3.5(L) 3.8 - 10.8 Thousand/ uL [facility] RBC 3.61(L) 3.80 - 5.10 Million/u L [facility] Hemoglobin 12.2 11.7 - 15.5 g/dL [facility] Hematocrit 36.8 35.0 - 45.0 % [facility] MCV 101.9(H) 80.0 - 100.0 fL [facility] MCH 33.8(H) 27.0 - 33.0 pg [facility] MCHC 33.2 32.0 - 36.0 g/dL [facility] Comment: For adults, a slight decrease in the calculated MCHC value (in the range of 30 to 32 g/dL) is most likely not clinically significant; however, it should be interpreted with caution in correlation with other red cell parameters and the patient's clinical condition. RDW 12.2 11.0 - 15.0 % [facility] Platelets 313 140 - 400 Thousand/ uL [facility] MPV 9.7 7.5 - 12.5 fL [facility] Neutrophils Absolute 2,776 1,500 - 7,800 cells/uL [facility] Lymphocytes Absolute 336(L) 850 - 3,900 cells/uL [facility] Monocytes Absolute 308 200 - 950 cells/uL [facility] Eosinophils Absolute 81 15 - 500 cells/uL [facility] Basophils Absolute 0 0 - 200 cells/uL [facility] Neutrophils 79.3 % [facility] Lymphocytes 9.6 % [facility] Monocytes 8.8 % [facility] Eosinophils 2.3 % [facility] Basophils 0.0 % [facility] Blood 04/02/2025 9:36 AM EDT 04/02/2025 9:37 AM EDT Narrative [facility] - 04/03/2025 5:41 AM EDT FASTING:NO FASTING: NO Resulting Agency Comment Performing Lab: Site ID: [id number] Name: [facility] Address: [address] [place] [id number] Director: David Sandhu M.D. Saji Casey MD LAB BLOOD ORDERABLES Mary Jane l Result [facility] [address] [place] [address] * COMPREHENSIVE METABOLIC PANEL (04/02/2025 9:36 AM EDT) Pathologist [facility] Glucose 138 65 - 139 mg/dL [facility] Comment: Non-fasting reference interval BUN 23 7 - 25 mg/dL [facility] Creatinine 0.87 0.50 - 1.05 mg/dL [facility] eGFR (Creatinine) 76 > OR = 60 mL/min/1. 73m2 [facility] BUN/Creatinine Ratio SEE NOTE: 6 - 22 (calc) [facility] Comment: Not Reported: BUN and Creatinine are within reference range. Sodium 143 135 - 146 mmol/L [facility] Potassium 4.5 3.5 - 5.3 mmol/L [facility] Chloride 107 98 - 110 mmol/L [facility] CO2 31 20 - 32 mmol/L [facility] Calcium 9.8 8.6 - 10.4 mg/dL [facility] Protein, Total 6.4 6.1 - 8.1 g/dL [facility] Albumin 4.3 3.6 - 5.1 g/dL [facility] Globulin 2.1 1.9 - 3.7 g/dL (calc) [facility] Albumin/Globulin Ratio 2.0 1.0 - 2.5 (calc) [facility] Bilirubin, Total 0.3 0.2 - 1.2 mg/dL [facility] Alkaline Phosphatase 41 37 - 153 U/L [facility] AST 17 10 - 35 U/L [facility] ALT 22 6 - 29 U/L [facility] Blood 04/02/2025 9:36 AM EDT 04/02/2025 9:37 AM EDT Narrative [facility] - 04/03/2025 5:41 AM EDT FASTING:NO FASTING: NO Resulting Agency Comment Performing Lab: Site ID: [id number] Name: [facility] Address: [address] [place] [id number] Director: David Sandhu M.D. us Saji Casey MD LAB BLOOD ORDERABLES Mary Jane l Result Performing Organization Address City/[facility]/ZIP Co de Phone Number [facility] [address] [place] [address] * HIV-1/HIV-2 antibody/antigen screen w/reflex ([facility]) (01/26/2023 9:30 AM EDT) [facility] HIV 1 and 2 Antibody/Antigen Screen Negative Negative 01/26/2023 5:00 PM EDT [facility]PART[facility] OF [facility]ATORY MEDICINE Comment:Interpretation: This specimen is HIV antibody negative. A negative test does not exclude the possibility of infection with HIV. Negative results may be seen in early infection, advanced AIDS and agammaglobulinemic patients. If suspicion is high, submit a sample for HIV nucleic acid testing. Blood Venipuncture / Unknown 01/26/2023 9:30 AM EDT 01/26/2023 9:30 AM EDT Karen Rolle MD LAB BLOOD ORDERABLES F inal Result [facility] DEPARTMENT OF LABORATORY MEDICINE [address] [place] [address] * Hepatitis C Ab with reflex to HCV PCR (01/26/2023 9:30 AM EDT) Hepatitis C Antibody Negative Negative 01/26/2023 5:00 PM EDT [facility] OF [facility]OR[facility]ORY MEDICINE Comment:A negative result do es not exclude HCV infection, since antibodies are not detectable for 4-8 weeks after initial infection, or may not develop in compromised hosts. In high-risk individuals, repeat antibody testing in 2 months and/or HCV RNA PCR should be considered. Blood Venipuncture / Unknown 01/26/2023 9:30 AM EDT 01/26/2023 9:30 AM EDT us Karen Rolle MD LAB BLOOD ORDERABLES F inal Result [facility] DEPARTMENT OF LABORATORY MEDICINE [address] [place] [address] from Last 3 Months or Most Recently Relevant to Health Maintenance Insurance [facility] Care Teams Pasta Maker Relationship Specialty Start Date End Date Ashkan Trevizo MD [address] [place] [phone] PCP - General Internal Medicine 12/20/22
--- OUTSIDE RECORDS SUMMARY | 2025-05-23 16:06 | XMS_ITS | Encounter Summary ---
Author Organization [facility] Address [address] [place] [address] Care Team Providers Care Stab Setter And Driller Name Role Phone Ashkan Trevizo MD Primary Care Provider [phone] Reason for Visit * Reason Comments Medication Refill Encounter Details Date Type Department Care Team ([facility] st Contact Info) Description 08/08/2023 Refill [facility] [address] [place] [phone] Karen Rolle MD [address] [place] [phone] Medication Refill Social History Tobacco Use Types [...] encounter Miscellaneous Notes * Telephone Encounter - Chris Jane, PharmD - 08/08/2023 11:52 AM EST Contacted patient to confirm they are still receiving T[place] from [employer] [facility]. Currentlyreports having 14 or more days of medication supply on hand. Patient unaware of any need for refills to be sent. Patient will call [facility] line if she discovers that [employer] [facility] requires refill or other authorization. Otherwise will leave for follow-up by Zoraida Adams Pharmd. documented in this encounter Plan of Treatment Upcoming Encounters Date Type Department Care Team (Late st Contact Info) Description 07/17/2025 11:30 AM EDT Office Visit [facility] [address] [facility] [address] [place] [address] Saji Casey MD [address] [place] [phone] 07/30/2025 3:30 PM EST Telemedicine [facility] at [address] [place] [phone] Zoraida Adams PharmD documented as of this [...] documented as of this encounter Care Teams Stab Setter And Driller Relationship Specialty Start Date End Date Ashkan Trevizo MD [address] [place] [phone] PCP - General Internal Medicine 12/20/22 documented as of this encounter
== END 2025-05-23 16:19 | disposition home or self-care (01) ==
LOC: HO.ENCR 15:08
PROVIDERS: PCP Internal Medicine; Visit Provider Internal Medicine Endocrinology, Diabetes & Metabolism
DX: M81.0 Age-related osteoporosis without current pathological fracture (principal)
CPT/HCPCS: 99204